=== PATIENT | female | born 1935 | race African-American/Black ===

== ENCOUNTER 2018-04-12 09:53 | Emergency (ER) | payer MEDICARE ==
[2018-04-12 10:00] VITALS: BP 156/95
[2018-04-12] MEDS ORDERED: OXYCODONE-ACETAMINOPHEN 5-325 MG TABLET PO ONE (10:10)
--- NOTE | 2018-04-12 10:12 | ER Document Report ---
ED Medical Screen (RME) - General Chief Complaint: Hip Pain Stated Complaint: HIP PAIN Time Seen by Provider: 04/12/18 10:09 Notes: 82 years old female presents today with left hip pain since yesterday, having difficulty in ambulating. No injury no fall. Woke up with it. Denies any pain running down the leg denies any numbness tingling sensation over the lower extremity. Sharp tenderness noted over the left sacroiliac joint region as well as Sharp tenderness noted over the left SI joint region ,left trochanteric region. TRAVEL OUTSIDE OF THE [place] IN LAST 30 DAYS: No - Related Data Allergies/Adverse Reactions: No Known Allergies Allergy (Unverified 07/19/12 18:19) Past Medical History - Past Medical History Cardiac Medical History: Reports: Hx Hypertension Endocrine Medical History: Reports: Hx Diabetes Mellitus Type 2 Renal/ Medical History: Denies: Hx Peritoneal Dialysis Musculoskeltal Medical History: Reports Hx Arthritis - Immunizations Hx Diphtheria, Pertussis, Tetanus Vaccination: Yes Physical Exam - Vital signs Vitals: Temp Pulse Resp BP Pulse Ox 97.5 F 78 16 156/95 H 95 04/12/18 09:59 04/12/18 09:59 04/12/18 09:59 04/12/18 09:59 04/12/18 09:59 Course - Vital Signs Vital signs: Temp Pulse Resp BP Pulse Ox 97.5 F 78 16 156/95 H 95 04/12/18 09:59 04/12/18 09:59 04/12/18 09:59 04/12/18 09:59 04/12/18 09:59 Doctor's Discharge - Discharge Referrals: BORA LUCIO MD [Primary Care Provider] - Follow up as needed
[2018-04-12] MEDS ORDERED: LIDOCAINE 5% (700 MG) TRANSDERMAL ADH..PATCH TP ONE (11:16)
[2018-04-12] MEDS ORDERED: KETOROLAC TROMETHAMINE INJ/PF 30 MG/1 ML SDV IM ONE (11:16)
--- NOTE | 2018-04-12 11:16 | ER Document Report ---
HPI - HPI Pain Level: 5 Notes: Patient is an 82-year-old female with a history of hypertension and chronic left lower back pain who presents to the ED complaining of acute on chronic left lower back/upper buttock pain over the last couple days. The pain will occasionally radiate down her left lateral leg. Movements make her pain worse as well as lying on that side. Patient states that she has had pain in this area intermittently over the last couple years. Patient states that she was pushing on a chair yesterday which flared up her pain. She has been trying some Tylenol with minimal relief. She denies any drug allergies. She is eating and drinking without any difficulties. She is urinating normally and having normal bowel movements. Patient states that she is still able to ambulate with aid of her single-point cane. Denies any headache, fever, URI, sore throat, chest pain, palpitations, syncope, cough, shortness of breath, wheeze, dyspnea, abdominal pain, nausea/vomiting/diarrhea, urinary retention, dysuria, hematuria, loss of control of bowel or bladder, numbness/tingling, saddle anesthesia, muscle paralysis/weakness, or rash. - ROS Systems Reviewed and Negative: Yes All other systems reviewed and negative - REPRODUCTIVE Reproductive: DENIES: : - DERM Skin Color: Normal Past Medical History - Social History Smoking Status: Never Smoker Family History: Reviewed & Not Pertinent Patient has suicidal ideation: No Patient has homicidal ideation: No - Past Medical History Cardiac Medical History: Reports: Hx Hypertension Endocrine Medical History: Reports: Hx Diabetes Mellitus Type 2 Renal/ Medical History: Denies: Hx Peritoneal Dialysis Musculoskeletal Medical History: Reports Hx Arthritis - Immunizations Hx Diphtheria, Pertussis, Tetanus Vaccination: Yes Vertical Provider Document - CONSTITUTIONAL Agree With Documented VS: Yes Notes: PHYSICAL EXAMINATION: GENERAL: Well-appearing, well-nourished and in no acute distress. LUNGS: Breath sounds clear to auscultation bilaterally and equal. No wheezes rales or rhonchi. HEART: Regular rate and rhythm without murmurs, rubs, gallops. ABDOMEN: Soft, nontender, nondistended abdomen. No guarding, no rebound. No masses appreciated. Normal bowel sounds present. No CVA tenderness bilaterally. No pulsatile mass Musculoskeletal: LE's b/l: FROM to passive/active. Strength 5+/5. No deficits noted. No bony tenderness of extremities. Back: FROM to passive/active. Strength 5+/5. No vertebral point tenderness, stepoffs, or deformities. No other erythema, swelling, or ecchymosis. SLR negative b/l. + mild tenderness to the L-paraspinal mm on the left side. Mild spasming. + left SI jt tenderness. No foot drop. + mild tenderness left troch bursa. Extremities: No cyanosis, clubbing, or edema b/l. Peripheral pulses 2+. Capillary refill less than 2 seconds. NEUROLOGICAL: Normal speech, ataxic gait. Normal sensory, motor exams. Reflexes 2+ b/l. PSYCH: Normal mood, normal affect. SKIN: Warm, Dry, normal turgor, no rashes or lesions noted. - INFECTION CONTROL TRAVEL OUTSIDE OF THE [place] IN LAST 30 DAYS: No Course - Re-evaluation Re-evalutation: 04/12/18 11:12 Patient is an afebrile, well-hydrated, 82-year-old female who presents to the ED with acute on chronic low back pain and sacroiliitis. Vitals are acceptable. PE is otherwise unremarkable for any focal neurological deficits. X-ray was unremarkable for any acute pathology. Patient was given Toradol & Lidoderm patch. She has no significant tachycardia, tachypnea, or hypoxia. She is nontoxic-appearing and is tolerating p.o. without difficulties. There are no signs of infection. No other red flag symptoms noted. No other labs or imaging warranted at this time based on H&P. Low suspicion for any meningitis, fracture, expanding/ruptured AAA, cauda equina syndrome, epidural mass lesion/ abscess, herniated disc causing severe spinal stenosis, or other systemic infection at this time. Patient is aware that this condition can change from initial presentation and that she needs monitor symptoms closely for any acute changes. I will send her home with a prescription for lidoderm patch and a short Rx of celebrex with GI bleed risk reviewed. Conservative measures otherwise for symptoms. Recheck with your PCM in 3-5 days. Consider consult with orthopedic/physical therapy. Return to the ED with any worsening/ concerning symptoms otherwise as reviewed discharge. Patient is in agreement. - Vital Signs Vital signs: Temp Pulse Resp BP Pulse Ox 97.5 F 78 16 156/95 H 95 04/12/18 09:59 04/12/18 09:59 04/12/18 09:59 04/12/18 09:59 04/12/18 09:59 Discharge - Discharge Clinical Impression: Sacroiliitis Left low back pain Qualifiers: Chronicity: acute Sciatica presence: without sciatica Qualified Code(s): M54.5 - Low back pain Condition: Stable Disposition: HOME, SELF-CARE Instructions: Stretching Exercises for the Back ([facility]), Low Back Pain ([facility]), Muscle Relaxers ([facility]) Additional Instructions: Rest, Ice Tylenol/ibuprofen as needed Light stretches daily Strength exercises as able Moist heat and massage may help F/u with your PCP in 3-5 days for a recheck Consider consult(s) with Orthopedics/physical therapy for ongoing/worsening symptoms Return to the ED with any worsening symptoms and/or development of fever, headache, chest pain, palpitations, syncope, shortness of breath, trouble breathing, abdominal pain, n/v/d, muscle weakness/paralysis, numbness/tingling, swelling, redness, or other worsening symptoms that are concerning to you. Prescriptions: Celecoxib [Celebrex 100 mg Capsule] 100 mg PO BID #14 capsule Lidocaine [Lidoderm] 1 each TP DAILY #30 adh..patch Forms: Elevated Blood Pressure Referrals: BORA LUCIO MD [Primary Care Provider] - Follow up in 3-5 days [facility] [Provider Group] - Follow up as needed
--- NOTE | 2018-04-12 11:37 | RADIOLOGY REPORT (SQ) ---
EXAM DESCRIPTION: HIP LEFT AP/LATERAL COMPLETED DATE/TIME: 04/12/2018 11:00 am REASON FOR STUDY: Low back/left hip pain unable to ambulate COMPARISON: None. NUMBER OF VIEWS: Two views. TECHNIQUE: AP pelvis and additional frog-leg view of the left hip. LIMITATIONS: None. FINDINGS: MINERALIZATION: Osteopenia. LEFT HIP: No fracture or dislocation. No worrisome bone lesions. RIGHT HIP: No fracture or dislocation. No worrisome bone lesions. PUBIS AND ISCHIUM: Suspect fractures of the inferior pubic rami bilaterally, and possibly superior pu bic ramus on the left. PELVIS: No fracture. SACRUM: No fracture or dislocation. No worrisome bone lesions. LOWER LUMBAR SPINE: Degenerative changes. SOFT TISSUES: No findings. OTHER: No other significant finding. IMPRESSION: Possible pubic fractures. COMMENT: Recommend CT of the pelvis. TECHNICAL DOCUMENTATION: JOB ID: [id number] [employer]- All Rights Reserved Reading location - IP/workstation name: [email or web address]
--- NOTE | 2018-04-12 11:42 | RADIOLOGY REPORT (SQ) ---
EXAM DESCRIPTION: L SPINE WHOLE COMPLETED DATE/TIME: 04/12/2018 11:00 am REASON FOR STUDY: Low back/left hip pain unable to ambulate COMPARISON: None. NUMBER OF VIEWS: Five views including obliques. TECHNIQUE: AP, lateral, oblique, and sacral radiographic images acquired of the lumbar spine. LIMITATIONS: None. FINDINGS: MINERALIZATION: Osteopenia. SEGMENTATION: Normal. No transitional anatomy. ALIGNMENT: Normal. VERTEBRAE: Maintained height. No fracture or worrisome bone lesion. DISCS: Preserved height. No significant osteophytes or end plate irregularity. POSTERIOR ELEMENTS: Pedicles and facets are intact. No pars defect or posterior arch defects. HARDWARE: None in the spine. PARASPINAL SOFT TISSUES: Normal. PELVIS: Intact as visualized. No fractures or worrisome bone lesions. SI joints intact. OTHER: No other significant finding. IMPRESSION: No significant or acute findings. TECHNICAL DOCUMENTATION: JOB ID: [id number] [employer]- All Rights Reserved Reading location - IP/workstation name: [email or web address]
== END 2018-04-12 11:38 | disposition home or self-care (01) ==
LOC: ER 09:53
DX: M46.1 Sacroiliitis, not elsewhere classified (principal); M54.5 Low back pain; G89.29 Other chronic pain; R25.2 Cramp and spasm; I10 Essential (primary) hypertension; E11.9 Type 2 diabetes mellitus without complications
CPT/HCPCS: 99283; 96372; 73502; 72110; J1885; A9270

== ENCOUNTER 2018-11-04 15:34 | Observation (INO) | payer MEDICARE ==
[2018-11-04] MEDS ORDERED: ONDANSETRON HCL INJ/PF 4 MG/2 ML SDV IV ONE (15:37)
[2018-11-04] MEDS ORDERED: NITROGLYCERIN 2% OINTMENT 1 GM PACKET TP ONE (15:57)
[2018-11-04] MEDS ORDERED: PANTOPRAZOLE SODIUM 40 MG VIAL IV ONE (15:58)
--- NOTE | 2018-11-04 15:59 | ER Document Report ---
ED General - General Chief Complaint: General Weakness Stated Complaint: GENERAL WEAKNESS Time Seen by Provider: 11/04/18 15:56 Mode of Arrival: Stretcher Information source: Patient, Relative, Emergency Med Personnel Notes: This is an 83-year-old female with a history of hypertension and hypothyroidism who presents to the emergency room with worsening weakness, nausea over the past week. Patient is actively vomiting in the ER. She last ate earlier today. Her vomit is mostly food and towards the end there was some bright red blood: (small amount) TRAVEL OUTSIDE OF THE [place] IN LAST 30 DAYS: No - HPI Onset: Last week Onset/Duration: Gradual Quality of pain: No pain Severity: None Pain Level: Denies Associated symptoms: Nausea, Vomiting, Weakness. denies: Chest pain, Fever, Shortness of breath Exacerbated by: Denies Relieved by: Denies Similar symptoms previously: No Recently seen / treated by doctor: No - Related Data Allergies/Adverse Reactions: No Known Allergies Allergy (Unverified 07/19/12 18:19) Past Medical History - General Information source: Patient, Relative - Social History Smoking Status: Never Smoker Cigarette use (# per day): No Chew tobacco use (# tins/day): No Frequency of alcohol use: None Drug Abuse: None Lives with: Spouse/Significant other Family History: Reviewed & Not Pertinent Patient has suicidal ideation: No Patient has homicidal ideation: No - Past Medical History Cardiac Medical History: Reports: Hx Hypertension Pulmonary Medical History: Reports: None EENT Medical History: Reports: None Neurological Medical History: Reports: None Endocrine Medical History: Reports: Hx Diabetes Mellitus Type 2 Renal/ Medical History: Denies: Hx Peritoneal Dialysis Malignancy Medical History: Reports: None GI Medical History: Reports: None Musculoskeletal Medical History: Reports Hx Arthritis Psychiatric Medical History: Reports: None Surgical Hx: Negative - Immunizations Hx Diphtheria, Pertussis, Tetanus Vaccination: Yes Review of Systems - Review of Systems Constitutional: denies: Chills, Fever EENT: No symptoms reported Cardiovascular: denies: Chest pain, Palpitations, Heart racing Respiratory: denies: Cough, Short of breath, Wheezing Gastrointestinal: Nausea, Vomiting. denies: Abdominal pain Genitourinary: No symptoms reported Female Genitourinary: No symptoms reported Musculoskeletal: No symptoms reported Skin: No symptoms reported Hematologic/Lymphatic: No symptoms reported Neurological/Psychological: Weakness Physical Exam - Vital signs Vitals: Resp BP Pulse Ox 14 197/99 H 97 11/04/18 15:42 11/04/18 15:42 11/04/18 15:42 Notes: Physical exam: GENERAL: This is an 83-year-old female, actively vomiting during my evaluation. HEAD: Atraumatic, normocephalic. EYES: Pupils equal round and reactive to light, extraocular movements intact, sclera anicteric, conjunctiva are normal. ENT: TMs normal, nares patent, oropharynx clear without exudates. Dry mucous membranes. NECK: Normal range of motion, supple without obvious mass or JVD. LUNGS: Breath sounds clear to auscultation bilaterally and equal. No wheezes rales or rhonchi. HEART: Regular rate and rhythm without murmurs, rubs or gallops. ABDOMEN: Soft, normoactive bowel sounds. No tenderness to palpation. No guarding, no rebound. No masses appreciated. Rectal exam: Brown stool, heme-negative EXTREMITIES: Normal range of motion, no pitting or edema. No clubbing or cyanosis. NEUROLOGICAL: Cranial nerves II through XII grossly intact. Normal speech, moving all extremities. PSYCH: Normal mood, normal affect. SKIN: Warm, Dry, normal turgor, no rashes or lesions noted. Course - Re-evaluation Re-evalutation: 11/04/18 22:23 Note: Patient did vomit several times while I was in her room. She did have a little bright red blood in the vomitus the last time she retched. Her abdomen was soft and benign at the time. Her stool was brown and heme-negative. She was treated with anti-emetics, IV fluids. CT of the head and the abdomen showed no acute process. She did not have any further vomiting and has no abdominal pain on repeat exam. She is weak and has a low temperature so we will bring her room for further evaluation. She has no obvious source of infection at this point. She was given steroids for possible adrenal insufficiency. - Vital Signs Vital signs: Temp Pulse Resp BP Pulse Ox 96.1 F L 16 119/89 H 95 11/04/18 16:21 11/04/18 18:01 11/04/18 21:01 11/04/18 21:01 - Laboratory Result Diagrams: 11/04/18 15:31 11/04/18 15:31 Laboratory results interpreted by me: 03/02/19 03/02/19 03/02/19 15:31 15:31 15:31 WBC 11.0 H Glucose 155 H Hemoglobin A1c % Creatine Kinase 216 H Total Protein 9.0 H Free T3 pg/mL 11/04/18 11/04/18 15:31 17:22 WBC Glucose Hemoglobin A1c % 6.1 H Creatine Kinase Total Protein Free T3 pg/mL 2.65 L - Diagnostic Test Radiology reviewed: Image reviewed, Reports reviewed - CT of the head shows no acute process. CT of the abdomen shows no acute process. Chest x-ray is clear Critical Care Note - Critical Care Note Total time excluding time spent on procedures (mins): 60 Discharge - Discharge Clinical Impression: Nausea with vomiting, Near syncope Condition: Stable Disposition: ADMITTED INPATIENT Admitting Provider: Hospitalist - Dr. Chow Unit Admitted: Telemetry
[2018-11-04 16:07] LABS: ABSOLUTE BASOPHILS # (AUTO) 0.1 10^3/uL (0.0-0.2); ABSOLUTE EOSINOPHILS # (AUTO) 0.1 10^3/uL (0.0-0.6); ABSOLUTE LYMPHOCYTES (AUTO) 4.2 10^3/uL (0.5-4.7); ABSOLUTE MONOCYTES (AUTO) 1.2 10^3/uL (0.1-1.4); ABSOLUTE NEUT (AUTO) 5.5 10^3/uL (1.7-8.2); BASOPHILS % (AUTO) 0.5 % (0-2); EOSINOPHILS % (AUTO) 0.8 % (0-6); HEMATOCRIT 41.8 % (36.0-47.0); HEMOGLOBIN 14.1 g/dL (12.0-15.5); MEAN CORPUSCULAR HEMOGLOBIN 31.2 pg (27.0-33.4); MEAN CORPUSCULAR HGB CONC 33.8 g/dL (32.0-36.0); MEAN CORPUSCULAR VOLUME 92 fl (80-97); MONOCYTES % (AUTO) 10.9 % (3-13); PLATELET COUNT 261 10^3/uL (150-450); RED BLOOD COUNT 4.53 10^6/uL (3.72-5.28); RED CELL DISTRIBUTION WIDTH 13.8 % (11.5-14.0); SEGMENTED NEUTROPHILS % (AUTO) 49.8 % (42-78); TOTAL CELLS COUNTED % (AUTO) 100 %
[2018-11-04 16:19] LABS: ALANINE AMINOTRANSFERASE 19 U/L (9-52); ALBUMIN 4.6 g/dL (3.5-5.0); ALKALINE PHOSPHATASE 115 U/L (38-126); ANION GAP 10 (5-19); ASPARTATE AMINO TRANSFERASE 31 U/L (14-36); BILIRUBIN,DIRECT 0.3 mg/dL (0.0-0.4); BILIRUBIN,TOTAL 0.6 mg/dL (0.2-1.3); BLOOD UREA NITROGEN 19 mg/dL (7-20); CALCIUM 10.1 mg/dL (8.4-10.2); CARBON DIOXIDE 26 mmol/L (22-30); CHLORIDE 105 mmol/L (98-107); GLUCOSE 155 mg/dL (75-110); POTASSIUM 3.8 mmol/L (3.6-5.0); SODIUM 141.3 mmol/L (137-145)
[2018-11-04 16:33] LABS: TROPONIN I < 0.012 ng/mL
--- NOTE | 2018-11-04 16:33 | EKG REPORT ---
SEVERITY:- ABNORMAL ECG - SINUS RHYTHM LEFT VENTRICULAR HYPERTROPHY BORDERLINE PROLONGED QT INTERVAL : Confirmed by: Demar Palma 04-Nov-2018 16:32:23
--- NOTE | 2018-11-04 17:22 | RADIOLOGY REPORT (SQ) ---
EXAM DESCRIPTION: CHEST SINGLE VIEW COMPLETED DATE/TIME: 11/04/2018 5:14 pm REASON FOR STUDY: vomiting COMPARISON: 07/20/2012. EXAM PARAMETERS: NUMBER OF VIEWS: One view. TECHNIQUE: Single frontal radiographic view of the chest acquired. RADIATION DOSE: NA LIMITATIONS: None. FINDINGS: LUNGS AND PLEURA: No opacities, masses or pneumothorax. No pleural effusion. MEDIASTINUM AND HILAR STRUCTURES: No masses. Contour normal. HEART AND VASCULAR STRUCTURES: Heart upper limits of normal in size. Normal vasculature. BONES: No acute findings. HARDWARE: None in the chest. OTHER: No other significant finding. IMPRESSION: NO ACUTE RADIOGRAPHIC FINDING IN THE CHEST. TECHNICAL DOCUMENTATION: JOB ID: [id number] [employer]- All Rights Reserved Reading location - IP/workstation name: [email or web address]
[2018-11-04 17:33] LABS: APPEARANCE,URINE CLEAR; BILIRUBIN,URINE NEGATIVE (NEGATIVE); COLOR,URINE STRAW; GLUCOSE, URINE NEGATIVE (NEGATIVE); KETONES,URINE NEGATIVE (NEGATIVE); LEUKOCYTE ESTERASE,URINE NEGATIVE (NEGATIVE); NITRITE,URINE NEGATIVE (NEGATIVE); PROTEIN,URINE NEGATIVE (NEGATIVE); URINE SPECIFIC GRAVITY 1.016; UROBILINOGEN,URINE NEGATIVE mg/dL (<2.0)
--- NOTE | 2018-11-04 17:36 | RADIOLOGY REPORT (SQ) ---
EXAM DESCRIPTION: CT HEAD WITHOUT COMPLETED DATE/TIME: 11/04/2018 5:21 pm REASON FOR STUDY: [place] COMPARISON: None. TECHNIQUE: Axial images acquired through the brain without intravenous contrast. Images reviewed wi th bone, brain and subdural windows. Images stored on PACS. All CT scanners at this facility use dose modulation, iterative reconstruction, and/or weight based d osing when appropriate to reduce radiation dose to as low as reasonably achievable (ALARA). [facility]: Dose Right [facility]: CareDose [facility]: Dose Right [facility]: Teradose 4D [facility]: [place] Digital RADIATION DOSE: CT Rad equipment meets quality standard of care and radiation dose reduction techniq ues were employed. CTDIvol: 53.2 mGy. DLP: 1097 mGy-cm. mGy. LIMITATIONS: None. FINDINGS: VENTRICLES: Normal size and contour. CEREBRUM: No masses. No hemorrhage. No midline shift. No evidence for acute infarction. Normal gra y/white matter differentiation. No areas of low density in the white matter. CEREBELLUM: No masses. No hemorrhage. No alteration of density. No evidence for acute infarction. EXTRAAXIAL SPACES: No fluid collections. No masses. ORBITS AND GLOBE: No intra- or extraconal masses. Normal contour of globe without masses. CALVARIUM: No fracture. PARANASAL SINUSES: No fluid mild left maxillary mucosal thickening. SOFT TISSUES: No mass or hematoma. OTHER: No other significant finding. IMPRESSION: No acute intracranial findings. EVIDENCE OF ACUTE STROKE: NO. COMMENT: Quality ID # 436: Final reports with documentation of one or more dose reduction techniques (e.g., Automated exposure control, adjustment of the mA and/or kV according to patient size, use of iterative reconstruction technique) TECHNICAL DOCUMENTATION: JOB ID: [id number] [place]-72 2010 [employer]- All Rights Reserved Reading location - IP/workstation name: [email or web address]
[2018-11-04] MEDS ORDERED: METOCLOPRAMIDE HCL INJ/PF 10 MG/2 ML SDV IV ONE (17:50)
[2018-11-04 18:38] LABS: FREE T3 2.65 pg/mL (2.77-5.27); FREE T4 (FREE THYROXINE) 1.29 ng/dL (0.78-2.19)
[2018-11-04 18:52] LABS: THYROID STIMULATING HORMONE 1.39 uIU/mL (0.47-4.68)
--- NOTE | 2018-11-04 19:27 | RADIOLOGY REPORT (SQ) ---
EXAM DESCRIPTION: CT ABD/PELVIS WITH IV ONLY COMPLETED DATE/TIME: 11/04/2018 7:13 pm REASON FOR STUDY: vomiting COMPARISON: None. TECHNIQUE: CT scan of the abdomen and pelvis performed using helical scanning technique with dynamic intravenous contrast injection. No oral contrast. Images reviewed with lung, soft tissue, and bone w indows. Reconstructed coronal and sagittal MPR images reviewed. Delayed images for evaluation of the urinary system also acquired. All images stored on PACS. All CT scanners at this facility use dose modulation, iterative reconstruction, and/or weight based d osing when appropriate to reduce radiation dose to as low as reasonably achievable (ALARA). [facility]: Dose Right [facility]: CareDose [facility]: Dose Right [facility]: Teradose 4D [facility]: AQUA PURE CONTRAST TYPE AND DOSE: contrast/concentration: Isovue 350.00 mg/ml; Total Contrast Delivered: 91.0 ml; Total Saline Delivered: 72.0 ml RENAL FUNCTION: GFR > 60. RADIATION DOSE: CT Rad equipment meets quality standard of care and radiation dose reduction techniq ues were employed. CTDIvol: 18.2 - 20.4 mGy. DLP: 2136 mGy-cm.. LIMITATIONS: None. FINDINGS: LOWER CHEST: No significant findings. LIVER: Normal size. No enhancing masses. No dilated ducts. SPLEEN: Normal size. No focal lesions. PANCREAS: No masses identified. No significant calcifications. No adjacent inflammation or peripancre atic fluid collections. Pancreatic duct not dilated. GALLBLADDER: No calcified stones. No inflammatory changes to suggest cholecystitis. ADRENAL GLANDS: No significant masses. RIGHT KIDNEY AND URETER: No cysts identified. No solid masses identified. No calcified stones. No hyd ronephrosis or hydroureter. LEFT KIDNEY AND URETER: 5.2 cm lower pole cyst. No solid masses identified. No calcified stones. No h ydronephrosis or hydroureter. AORTA AND VESSELS: No aneurysm. No dissection. Renal arteries, SMA, celiac without significant stenos is. RETROPERITONEUM: No bulky retroperitoneal adenopathy. BOWEL AND PERITONEAL CAVITY: No obstruction or inflammatory changes. No free fluid. APPENDIX: Normal. PELVIS: May catheter in the bladder. No free fluid. ABDOMINAL WALL: No masses. No hernias. BONES: No acute findings. OTHER: No other significant finding. IMPRESSION: NO ACUTE FINDINGS IN THE ABDOMEN OR PELVIS ON CT SCAN WITH IV CONTRAST. TECHNICAL DOCUMENTATION: JOB ID: [id number] [place]-72 Quality ID # [id number]: Final reports with documentation of one or more dose reduction techniques (e.g., Au tomated exposure control, adjustment of the mA and/or kV according to patient size, use of iterative reconstruction technique) 2010 [employer]- All Rights Reserved Reading location - IP/workstation name: [email or web address]
[2018-11-04] MEDS ORDERED: HYDROCORTISONE SOD SUCCINATE INJ/PF 100 MG/2 ML SDV IV ONE (19:38)
[2018-11-04] MEDS ORDERED: NA PHOS,M-B/NA PHOS,DI-BA (ADULT) 133 ML ENEMA PR ONE (19:45)
[2018-11-04] MEDS ORDERED: MAGNESIUM HYDROXIDE SUSP 30 ML UDCUP PO PRN (19:48)
[2018-11-04] MEDS ORDERED: IPRATROPIUM/ALBUTEROL 0.5-2.5 MG/3 ML AMPUL NEB PRN (19:48)
[2018-11-04] MEDS ORDERED: ACETAMINOPHEN 325 MG TABLET PO PRN (19:48)
[2018-11-04] MEDS ORDERED: DEXTROSE 40% GEL 15 GM TUBE PO PRN ×2 (19:48)
[2018-11-04] MEDS ORDERED: GLUCAGON,HUMAN RECOMB 1 MG INJ IM PRN (19:48)
[2018-11-04] MEDS ORDERED: MAG HYDROX/AL HYDROX/SIMETH SUSP 30 ML UDCUP PO PRN (19:48)
[2018-11-04] MEDS ORDERED: DEXTROSE 50%-WATER 25 GM/50 ML DISP.SYRIN IV PRN ×2 (19:48)
[2018-11-04] MEDS ORDERED: PANTOPRAZOLE SODIUM 80 MG in NORMAL SALINE 100 ML IV ONE (19:54)
[2018-11-04 20:21] LABS: URINE AMPHETAMINES SCREEN NEGATIVE; URINE BARBITURATES SCREEN NEGATIVE; URINE BENZODIAZEPINES SCREEN NEGATIVE; URINE COCAINE SCREEN NEGATIVE; URINE MARIJUANA (THC) SCREEN NEGATIVE; URINE METHADONE SCREEN NEGATIVE; URINE PHENCYCLIDINE SCREEN NEGATIVE
[2018-11-04] MEDS ORDERED: PANTOPRAZOLE SODIUM 40 MG VIAL IV PRN (20:27)
[2018-11-04] MEDS: NORMAL SALINE 100 ML with PANTOPRAZOLE SODIUM 80 MG IV PRN ×2 (21:15)
[2018-11-04] MEDS: HEPARIN SOD (PORCINE) 5,000 UNIT/ML 1 ML SYRINGE SUBCUT SCH (21:16)
[2018-11-04] MEDS ORDERED: LACTULOSE SYRUP 20 GM/30 ML UDCUP PO ONE (22:02)
[2018-11-04 22:04] LABS: CREATINE KINASE MB 1.71 ng/mL (<4.55)
[2018-11-04 22:07] LABS: TROPONIN I < 0.012 ng/mL
--- NOTE | 2018-11-05 02:14 | PDOC H&P ---
History of Present Illness Admission Date/PCP: 11/04/18 19:52 BORA LUCIO MD Patient complains of: Nausea and vomiting History of Present Illness: MAHNAZ COKER is a 83 year old female with a past medical history of hypothyroidism, diabetes and hypertension who presents as a poor historian with complaints of vague nausea with vomiting of gastric content over the last 24 hours. In the emergency room she is found to have mild hypothermia she denies fever chills chest pain, palpitations and episode of vomiting x1 which is Gastroccult positive. CBC and chemistry unremarkable, CT imaging reveals a 5.2 cm left renal cyst and constipation. She receives a presumptive diagnosis of gastritis and possible adrenal insufficiency then referred to the hospitalist for observation. Patient denies previous episode or new medications. Past Medical History Cardiac Medical History: Reports: Hypertension Pulmonary Medical History: Reports: None EENT Medical History: Reports: None Neurological Medical History: Reports: None Endocrine Medical History: Reports: Diabetes Mellitus Type 2 Malignancy Medical History: Reports: None GI Medical History: Reports: None Musculoskeltal Medical History: Reports: Arthritis Psychiatric Medical History: Reports: None Social History Information Source: Patient, Emergency Med Personnel Lives with: Spouse/Significant other Smoking Status: Never Smoker Drugs: None - Advance Directive Resuscitation Status: Full Code Family History Family History: Hypertension Parental Family History Reviewed: Yes Children Family History Reviewed: Yes Sibling(s) Family History Reviewed.: Yes Medication/Allergy Home Medications: Telmisartan/Hydrochlorothiazid [Micardis HCT 80-25 mg Tablet] 1 each PO DAILY 07/19/12 Metformin HCl [Glucophage 500 Mg Tablet] 500 mg PO ASDIR PRN 07/20/12 Hydrocodone Bit/Acetaminophen [Vicodin 5-500 mg Tablet] 1 - 2 tab PO ASDIR PRN #15 tablet 07/23/12 Cyclobenzaprine HCl [Flexeril 5 mg Tablet] 5 mg PO TID #15 tablet 04/16/16 Celecoxib [Celebrex 100 mg Capsule] 100 mg PO BID #14 capsule 04/12/18 Lidocaine [Lidoderm] 1 each TP DAILY #30 adh..patch 04/12/18 Allergies/Adverse Reactions: No Known Allergies Allergy (Unverified 07/19/12 18:19) Review of Systems Constitutional: ABSENT: chills, fever(s), headache(s), weight gain, weight loss Eyes: ABSENT: visual disturbances Ears: ABSENT: hearing changes Cardiovascular: ABSENT: chest pain, dyspnea on exertion, edema, orthropnea, palpitations Respiratory: ABSENT: cough, hemoptysis Gastrointestinal: ABSENT: abdominal pain, constipation, diarrhea, hematemesis, hematochezia, nausea, vomiting Genitourinary: ABSENT: dysuria, hematuria Musculoskeletal: ABSENT: joint swelling Integumentary: ABSENT: rash, wounds Neurological: ABSENT: abnormal gait, abnormal speech, confusion, dizziness, focal weakness, syncope Psychiatric: ABSENT: anxiety, depression, homidical ideation, suicidal ideation Endocrine: ABSENT: cold intolerance, heat intolerance, polydipsia, polyuria Hematologic/Lymphatic: ABSENT: easy bleeding, easy bruising Physical Exam Vital Signs: Temp Pulse Resp BP Pulse Ox 97.6 F 78 17 158/75 H 95 11/04/18 23:56 11/04/18 23:56 11/04/18 23:56 11/04/18 23:56 11/04/18 23:56 Intake & Output 11/03/18 11/04/18 11/05/18 11:59 11:59 11:59 Intake Total 650 Output Total 800 Balance -150 Weight 104.4 kg General appearance: PRESENT: no acute distress, cooperative, obese, well-de veloped, well-nourished Head exam: PRESENT: atraumatic, normocephalic Eye exam: PRESENT: conjunctiva pink, EOMI, PERRLA. ABSENT: scleral icterus Ear exam: PRESENT: normal external ear exam Mouth exam: PRESENT: moist, tongue midline Neck exam: ABSENT: carotid bruit, JVD, lymphadenopathy, thyromegaly Respiratory exam: PRESENT: clear to auscultation gurvinder. ABSENT: rales, rhonchi, wheezes Cardiovascular exam: PRESENT: RRR. ABSENT: diastolic murmur, rubs, systolic murmur Pulses: PRESENT: normal dorsalis pedis pul Vascular exam: PRESENT: normal capillary refill GI/Abdominal exam: PRESENT: normal bowel sounds, soft. ABSENT: distended, guarding, mass, organolmegaly, rebound, tenderness Rectal exam: PRESENT: deferred Extremities exam: PRESENT: full ROM. ABSENT: calf tenderness, clubbing, pedal e jennifer Neurological exam: PRESENT: alert, awake, oriented to person, oriented to place, oriented to time, oriented to situation, CN II-XII grossly intact. ABSENT: motor sensory deficit Psychiatric exam: PRESENT: appropriate affect, normal mood. ABSENT: homicidal ideation, suicidal ideation Skin exam: PRESENT: dry, intact, warm. ABSENT: cyanosis, rash Results Laboratory Results: 11/04/18 15:31 11/04/18 15:31 11/04/18 11/04/18 11/04/18 15:31 15:31 16:25 WBC 11.0 H RBC 4.53 Hgb 14.1 Hct 41.8 MCV 92 MCH 31.2 MCHC 33.8 RDW 13.8 Plt Count 261 Seg Neutrophils % 49.8 Lymphocytes % 38.0 Monocytes % 10.9 Eosinophils % 0.8 Basophils % 0.5 Absolute Neutrophils 5.5 Absolute Lymphocytes 4.2 Absolute Monocytes 1.2 Absolute Eosinophils 0.1 Absolute Basophils 0.1 Sodium 141.3 Potassium 3.8 Chloride 105 Carbon Dioxide 26 Anion Gap 10 BUN 19 Creatinine 0.85 Est GFR ( Amer) > 60 Est GFR (Non-Af Amer) > 60 Glucose 155 H Lactic Acid Calcium 10.1 Phosphorus Magnesium Total Bilirubin 0.6 AST 31 ALT 19 Alkaline Phosphatase 115 Total Protein 9.0 H Albumin 4.6 TSH Free T4 Free T3 pg/mL Urine Color STRAW Urine Appearance CLEAR Urine pH 6.0 Ur Specific [place] 1.016 Urine Protein NEGATIVE Urine Glucose (UA) NEGATIVE Urine Ketones NEGATIVE Urine Blood NEGATIVE Urine Nitrite NEGATIVE Ur Leukocyte Esterase NEGATIVE Urine WBC (Auto) 0 Urine RBC (Auto) 0 11/04/18 11/04/18 11/04/18 17:22 17:22 17:22 WBC RBC Hgb Hct MCV MCH MCHC RDW Plt Count Seg Neutrophils % Lymphocytes % Monocytes % Eosinophils % Basophils % Absolute Neutrophils Absolute Lymphocytes Absolute Monocytes Absolute Eosinophils Absolute Basophils Sodium Potassium Chloride Carbon Dioxide Anion Gap BUN Creatinine Est GFR ( Amer) Est GFR (Non-Af Amer) Glucose Lactic Acid 1.1 Calcium Phosphorus 4.0 Magnesium 2.1 Total Bilirubin AST ALT Alkaline Phosphatase Total Protein Albumin TSH 1.39 Free T4 1.29 Free T3 pg/mL 2.65 L Urine Color Urine Appearance Urine pH Ur Specific [place] Urine Protein Urine Glucose (UA) Urine Ketones Urine Blood Urine Nitrite Ur Leukocyte Esterase Urine WBC (Auto) Urine RBC (Auto) 11/04/18 11/04/18 11/04/18 15:31 15:31 21:20 Creatine Kinase 216 H 179 H CK-MB (CK-2) 1.20 Troponin I < 0.012 11/04/18 21:20 Creatine Kinase CK-MB (CK-2) 1.71 Troponin I < 0.012 Impressions: Chest X-Ray 11/04/18 15:57 IMPRESSION: NO ACUTE RADIOGRAPHIC FINDING IN THE CHEST. Head CT 11/04/18 15:57 IMPRESSION: No acute intracranial findings. EVIDENCE OF ACUTE STROKE: NO. Abdomen/Pelvis CT 11/04/18 17:51 IMPRESSION: NO ACUTE FINDINGS IN THE ABDOMEN OR PELVIS ON CT SCAN WITH IV CONTRAST. Assessment & Plan - Diagnosis (1) Gastritis Is this a current diagnosis for this admission?: Yes Plan: Unclear cause, Protonix and clear liquid diet. Follow-up CBC (2) Upper GI bleed Is this a current diagnosis for this admission?: Yes Plan: Secondary to #1, IV Protonix, follow-up CBC, consider GI consult (3) Constipation Is this a current diagnosis for this admission?: Yes Plan: Enema (4) Diabetes Is this a current diagnosis for this admission?: Yes Plan: Possible contributor to fatigue state on metformin with A1c of 6. Suggest discontinuing metformin (5) Adrenal insufficiency Is this a current diagnosis for this admission?: Yes Plan: Presenting with fatigue, hypothermia, nausea vomiting. History of diabetes, hypothyroidism, follow-up random cortisol, Solu-Cortef trial initiated. - Time Time Spent: 50 to 70 Minutes - Inpatient Certification Medical Necessity: Need Close Monitoring Due to Risk of Patient Decompensation
[2018-11-05 04:43] LABS: HEMATOCRIT 38.9 % (36.0-47.0); HEMOGLOBIN 13.4 g/dL (12.0-15.5); MEAN CORPUSCULAR HEMOGLOBIN 31.4 pg (27.0-33.4); MEAN CORPUSCULAR HGB CONC 34.5 g/dL (32.0-36.0); MEAN CORPUSCULAR VOLUME 91 fl (80-97); PLATELET COUNT 242 10^3/uL (150-450); RED BLOOD COUNT 4.28 10^6/uL (3.72-5.28); RED CELL DISTRIBUTION WIDTH 13.7 % (11.5-14.0); WHITE BLOOD COUNT 8.5 10^3/uL (4.0-10.5)
[2018-11-05 05:04] LABS: ANION GAP 9 (5-19)
[2018-11-05 05:14] LABS: BLOOD UREA NITROGEN 14 mg/dL (7-20); CALCIUM 10.1 mg/dL (8.4-10.2); CARBON DIOXIDE 26 mmol/L (22-30); CHLORIDE 108 mmol/L (98-107); GLUCOSE 147 mg/dL (75-110); POTASSIUM 4.5 mmol/L (3.6-5.0); SODIUM 142.5 mmol/L (137-145)
[2018-11-05 05:21] LABS: TROPONIN I < 0.012 ng/mL
[2018-11-05] MEDS: HEPARIN SOD (PORCINE) 5,000 UNIT/ML 1 ML SYRINGE SUBCUT SCH ×2 (05:30→13:13)
[2018-11-05] MEDS: INSULIN LISPRO 100 UNIT/ML 3 ML VIAL SUBCUT SCH ×3 (08:07→18:22)
[2018-11-05] MEDS: NORMAL SALINE 100 ML with PANTOPRAZOLE SODIUM 80 MG IV PRN ×2 (08:56)
[2018-11-05 10:26] LABS: CREATINE KINASE MB 1.21 ng/mL (<4.55)
[2018-11-05 10:29] LABS: TROPONIN I < 0.012 ng/mL
[2018-11-05] MEDS: LIDOCAINE 5% (700 MG) TRANSDERMAL ADH..PATCH TP SCH (11:52)
[2018-11-05] MEDS: AMLODIPINE BESYLATE 5 MG TABLET PO SCH (13:14)
--- NOTE | 2018-11-05 13:49 | PDOC PROGRESS REPORT ---
Subjective Progress Note for:: 11/05/18 Subjective:: The patient is an 83-year-old female with a past medical history of hypothyroidism, diabetes, and hypertension who was admitted 11/04/18 for gastritis and concern for upper GI bleed. The patient is seen on rounds with numerous family members present. She is found sitting up in bed comfortably on room air. Her only complaint at present is frontal pressure associated with nasal congestion, muffled hearing, rhinorrhea, and sore throat related to postnasal drip. Patient does confirm that she frequently has seasonal allergies. Otherwise, she is requesting to advance her diet; states that she is unhappy with the clear liquid diet. She denies fever, chills, chest pain, palpitations, dyspnea, orthopnea, abdominal pain, nausea, vomiting, diarrhea. She denies further episodes of hematemesis (previously noted to have 2 small, possible, blood clots in emesis) or melena. She has no other questions or concerns at this time. No concerns per family members. No concerns per nursing. Reason For Visit: DM, HYPOTHYROID, NAUSEA, ADRENAL INSUF? Physical Exam Vital Signs: Temp Pulse Resp BP Pulse Ox 97.1 F 72 18 152/86 H 97 11/05/18 11:27 11/05/18 11:27 11/05/18 11:27 11/05/18 11:27 11/05/18 11:27 Intake & Output 11/04/18 11/05/18 11/06/18 06:59 06:59 06:59 Intake Total 650 100 Output Total 1600 Balance -950 100 Weight 104.4 kg General appearance: PRESENT: no acute distress, cooperative, obese, well- developed, well-nourished Head exam: PRESENT: atraumatic, normocephalic Eye exam: PRESENT: conjunctiva pink, EOMI, PERRLA. ABSENT: scleral icterus Ear exam: PRESENT: other - Cerumen impaction bilaterally Mouth exam: PRESENT: moist, tongue midline Teeth exam: PRESENT: poor dentation Throat exam: PRESENT: post pharyngeal erythema Neck exam: ABSENT: carotid bruit, JVD, lymphadenopathy, thyromegaly Respiratory exam: PRESENT: clear to auscultation gurvinder, symmetrical, unlabored. ABSENT: rales, rhonchi, wheezes Cardiovascular exam: PRESENT: RRR. ABSENT: diastolic murmur, rubs, systolic murmur Pulses: PRESENT: normal dorsalis pedis pul Vascular exam: PRESENT: normal capillary refill GI/Abdominal exam: PRESENT: normal bowel sounds, soft. ABSENT: distended, guarding, mass, organolmegaly, rebound, tenderness Rectal exam: PRESENT: deferred Extremities exam: PRESENT: full ROM. ABSENT: calf tenderness, clubbing, pedal edema Neurological exam: PRESENT: alert, awake, oriented to person, oriented to place, oriented to time, oriented to situation, CN II-XII grossly intact. ABSENT: motor sensory deficit Psychiatric exam: PRESENT: appropriate affect, normal mood. ABSENT: homicidal ideation, suicidal ideation Skin exam: PRESENT: dry, intact, warm. ABSENT: cyanosis, rash Results Laboratory Results: 11/05/18 03:36 11/05/18 03:36 11/04/18 11/04/18 11/04/18 15:31 15:31 16:25 WBC 11.0 H RBC 4.53 Hgb 14.1 Hct 41.8 MCV 92 MCH 31.2 MCHC 33.8 RDW 13.8 Plt Count 261 Seg Neutrophils % 49.8 Lymphocytes % 38.0 Monocytes % 10.9 Eosinophils % 0.8 Basophils % 0.5 Absolute Neutrophils 5.5 Absolute Lymphocytes 4.2 Absolute Monocytes 1.2 Absolute Eosinophils 0.1 Absolute Basophils 0.1 Sodium 141.3 Potassium 3.8 Chloride 105 Carbon Dioxide 26 Anion Gap 10 BUN 19 Creatinine 0.85 Est GFR ( Amer) > 60 Est GFR (Non-Af Amer) > 60 Glucose 155 H Lactic Acid Calcium 10.1 Phosphorus Magnesium Total Bilirubin 0.6 AST 31 ALT 19 Alkaline Phosphatase 115 Total Protein 9.0 H Albumin 4.6 TSH Free T4 Free T3 pg/mL Urine Color STRAW Urine Appearance CLEAR Urine pH 6.0 Ur Specific [place] 1.016 Urine Protein NEGATIVE Urine Glucose (UA) NEGATIVE Urine Ketones NEGATIVE Urine Blood NEGATIVE Urine Nitrite NEGATIVE Ur Leukocyte Esterase NEGATIVE Urine WBC (Auto) 0 Urine RBC (Auto) 0 11/04/18 11/04/18 11/04/18 17:22 17:22 17:22 WBC RBC Hgb Hct MCV MCH MCHC RDW Plt Count Seg Neutrophils % Lymphocytes % Monocytes % Eosinophils % Basophils % Absolute Neutrophils Absolute Lymphocytes Absolute Monocytes Absolute Eosinophils Absolute Basophils Sodium Potassium Chloride Carbon Dioxide Anion Gap BUN Creatinine Est GFR ( Amer) Est GFR (Non-Af Amer) Glucose Lactic Acid 1.1 Calcium Phosphorus 4.0 Magnesium 2.1 Total Bilirubin AST ALT Alkaline Phosphatase Total Protein Albumin TSH 1.39 Free T4 1.29 Free T3 pg/mL 2.65 L Urine Color Urine Appearance Urine pH Ur Specific [place] Urine Protein Urine Glucose (UA) Urine Ketones Urine Blood Urine Nitrite Ur Leukocyte Esterase Urine WBC (Auto) Urine RBC (Auto) 11/05/18 11/05/18 03:36 03:36 WBC 8.5 RBC 4.28 Hgb 13.4 Hct 38.9 MCV 91 MCH 31.4 MCHC 34.5 RDW 13.7 Plt Count 242 Seg Neutrophils % Lymphocytes % Monocytes % Eosinophils % Basophils % Absolute Neutrophils Absolute Lymphocytes Absolute Monocytes Absolute Eosinophils Absolute Basophils Sodium 142.5 Potassium 4.5 Chloride 108 H Carbon Dioxide 26 Anion Gap 9 BUN 14 Creatinine 0.72 Est GFR ( Amer) > 60 Est GFR (Non-Af Amer) > 60 Glucose 147 H Lactic Acid Calcium 10.1 Phosphorus Magnesium Total Bilirubin AST ALT Alkaline Phosphatase Total Protein Albumin TSH Free T4 Free T3 pg/mL Urine Color Urine Appearance Urine pH Ur Specific [place] Urine Protein Urine Glucose (UA) Urine Ketones Urine Blood Urine Nitrite Ur Leukocyte Esterase Urine WBC (Auto) Urine RBC (Auto) 11/04/18 11/04/18 11/04/18 15:31 15:31 21:20 Creatine Kinase 216 H 179 H CK-MB (CK-2) 1.20 Troponin I < 0.012 11/04/18 11/05/18 11/05/18 21:20 03:36 03:36 Creatine Kinase 157 H CK-MB (CK-2) 1.71 1.40 Troponin I < 0.012 < 0.012 11/05/18 11/05/18 09:24 09:24 Creatine Kinase 125 CK-MB (CK-2) 1.21 Troponin I < 0.012 Impressions: Chest X-Ray 11/04/18 15:57 IMPRESSION: NO ACUTE RADIOGRAPHIC FINDING IN THE CHEST. Head CT 11/04/18 15:57 IMPRESSION: No acute intracranial findings. EVIDENCE OF ACUTE STROKE: NO. Abdomen/Pelvis CT 11/04/18 17:51 IMPRESSION: NO ACUTE FINDINGS IN THE ABDOMEN OR PELVIS ON CT SCAN WITH IV CONTRAST. Assessment & Plan - Diagnosis (1) Gastritis Qualifiers: Chronicity: unspecified Gastritis bleeding: with bleeding Is this a current diagnosis for this admission?: Yes Plan: Unclear etiology; viral gastritis vs constipation. Possible hypoglycemia event leading to nausea/vomiting. Ct ABD/Pelvis is negative for acute findings. Leukocytosis has resolved, patient maintaining normal body temp, no other abnormal vital signs. She reports that her nausea has resolved and is asking to advance her diet. The patient was admitted to the medical floor, provided IV fluids, placed on Protonix drip, and a clear liquid diet. Has symptoms rapidly resolved; will discontinue Protonix drip and continue once daily Protonix IV. Advance diet slowly as tolerated. Antiemetics as needed. Low suspicion for upper GI bleeding as the patient has had no further episodes of emesis, hematemesis, melena, abdominal discomfort and has a stable hemoglobin. May benefit from outpatient GI follow-up. (2) Constipation Is this a current diagnosis for this admission?: Yes Plan: Resolved following fleets enema. Continue daily Colace. Milk of magnesia as needed. (3) Diabetes Qualifiers: Diabetes mellitus type: type 2 Diabetes mellitus fci insulin use: without terminologist use Is this a current diagnosis for this admission?: Yes Plan: A1c 6.1%. For patient of her age, goal would be <8.5% Recommend discontinuing home dose metformin. Accu-Cheks before meals and at bedtime with Humalog for sliding scale coverage. Hypoglycemia protocol in place. (4) Adrenal insufficiency Is this a current diagnosis for this admission?: Yes Plan: Ruled out; Random cortisol 22.50. - Time Time Spent with patient: 15-24 minutes Medications reviewed and adjusted accordingly: Yes Anticipated discharge: Home Within: within 24 hours
[2018-11-05] MEDS ORDERED: DOCUSATE SODIUM 100 MG CAPSULE BTH_EAR ONE ×2 (15:00→20:00)
[2018-11-05] MEDS: FLUTICASONE NASAL SPRAY 50 MCG/SPRY 120 SPRAY/16 GM NASL SCH (15:14)
[2018-11-05] MEDS: CETIRIZINE 5 MG TABLET PO SCH (15:14)
[2018-11-06 05:36] LABS: HEMATOCRIT 39.6 % (36.0-47.0); HEMOGLOBIN 13.4 g/dL (12.0-15.5); MEAN CORPUSCULAR HGB CONC 33.8 g/dL (32.0-36.0); MEAN CORPUSCULAR VOLUME 92 fl (80-97); PLATELET COUNT 229 10^3/uL (150-450); RED BLOOD COUNT 4.31 10^6/uL (3.72-5.28); RED CELL DISTRIBUTION WIDTH 13.9 % (11.5-14.0); WHITE BLOOD COUNT 7.4 10^3/uL (4.0-10.5)
[2018-11-06 05:54] LABS: ANION GAP 9 (5-19); BLOOD UREA NITROGEN 19 mg/dL (7-20); CALCIUM 10.2 mg/dL (8.4-10.2); CARBON DIOXIDE 27 mmol/L (22-30); CHLORIDE 107 mmol/L (98-107); GLUCOSE 118 mg/dL (75-110); POTASSIUM 4.4 mmol/L (3.6-5.0); SODIUM 142.6 mmol/L (137-145)
[2018-11-06] MEDS ORDERED: LEVOTHYROXINE SODIUM 0.075 MG TABLET PO SCH (06:00)
[2018-11-06] MEDS: INSULIN LISPRO 100 UNIT/ML 3 ML VIAL SUBCUT SCH ×2 (09:39→12:24)
[2018-11-06] MEDS: LIDOCAINE 5% (700 MG) TRANSDERMAL ADH..PATCH TP SCH (09:39)
[2018-11-06] MEDS: AMLODIPINE BESYLATE 5 MG TABLET PO SCH (09:50)
[2018-11-06] MEDS: CETIRIZINE 5 MG TABLET PO SCH (09:50)
[2018-11-06] MEDS: FLUTICASONE NASAL SPRAY 50 MCG/SPRY 120 SPRAY/16 GM NASL SCH (09:50)
[2018-11-06] MEDS ORDERED: PANTOPRAZOLE SODIUM 40 MG VIAL IV SCH (10:00)
[2018-11-06] MEDS ORDERED: DOCUSATE SODIUM 100 MG CAPSULE PO SCH (10:00)
[2018-11-06 15:01] VITALS: BP 140/71
--- NOTE | 2018-11-09 09:53 | PDOC DISCHARGE SUMMARY ---
General - Admit/Disc Date/PCP Admission Date/Primary Care Provider: 11/04/18 19:52 BORA LUCIO MD Discharge Date: 11/06/18 - Discharge Diagnosis (1) Gastritis Is this a current diagnosis for this admission?: Yes Summary: Resolved; now tolerating a regular diet without nausea, vomiting. Unclear etiology; viral gastritis vs constipation. Possible hypoglycemia event leading to nausea/vomiting. Ct ABD/Pelvis is negative for acute findings. Leukocytosis has resolved, patient maintaining normal body temp, no other abnormal vital signs. The patient was admitted to the medical floor, provided IV fluids, placed on Protonix drip, and a clear liquid diet. Has symptoms rapidly resolved; the Protonix drip and once daily Protonix IV was continued. Advance diet slowly as tolerated; she was tolerating a regular diet at time of discharge. Antiemetics as needed. Low suspicion for upper GI bleeding as the patient has had no further episodes of emesis, hematemesis, melena, abdominal discomfort and has a stable hemoglobin. May benefit from outpatient GI follow-up. The patient was discharged home in the care of family members. At time of discharge she is in stable condition, maintaining oxygen saturations while on Sveta on room air, and tolerating a regular diet. She denies abdominal discomfort, nausea, vomiting, diarrhea, melena, and hematochezia. She is recommended to follow-up with her primary care provider within 1 week and to return to the emergency department as needed for concerning symptoms. (2) Constipation Is this a current diagnosis for this admission?: Yes Summary: Resolved following fleets enema. Recommend [id number] daily stool softener and MiraLAX as needed. Recommend increasing fluid intake. (3) Diabetes Is this a current diagnosis for this admission?: Yes Summary: A1c 6.1%. For patient of her age, goal would be <8.5% While admitted, the patient received Accu-Cheks before meals and at bedtime with Humalog for sliding scale coverage. At discharge,recommend discontinuing home dose metformin. Continue consistent carb diet. Continue to monitor glucose and present a log to primary care provider at follow-up appointment. (4) Adrenal insufficiency Is this a current diagnosis for this admission?: Yes Summary: Ruled out; Random cortisol 22.50. (5) Upper GI bleed Is this a current diagnosis for this admission?: Yes Summary: Considered; ruled out. Low suspicion for upper GI bleeding as the patient has had no further episodes of emesis, hematemesis, melena, abdominal discomfort and has a stable hemoglobin. May benefit from outpatient GI follow-up. - Additional Information Resuscitation Status: Full Code Discharge Diet: Diabetic Discharge Activity: Activity As Tolerated, Balance Activity w/Rest, Slowly Increase Activity Prescriptions: Carbamide Peroxide [Debrox] 15 ml OT DAILY #1 drops Cetirizine HCl [Zyrtec 5 mg Tablet] 5 mg PO DAILY #30 tablet Docusate Sodium [Colace 100 mg Capsule] 100 mg PO DAILY #30 capsule Fluticasone Propionate [Flonase Nasal [place] 50 Mcg/[place] 16 gm] 2 spray NASL DAILY #1 spray.pump Home Medications: Levothyroxine Sodium [Synthroid 0.075 mg Tablet] 0.075 mg PO DAILY 11/05/18 Acetaminophen [Tylenol 325 mg Tablet] 650 mg PO Q4HP PRN tablet 11/06/18 Amlodipine Besylate [Norvasc 5 mg Tablet] 5 mg PO DAILY tablet 11/06/18 Carbamide Peroxide [Debrox] 15 ml OT DAILY #1 drops 11/06/18 Cetirizine HCl [Zyrtec 5 mg Tablet] 5 mg PO DAILY #30 tablet 11/06/18 Docusate Sodium [Colace 100 mg Capsule] 100 mg PO DAILY #30 capsule 11/06/18 Fluticasone Propionate [Flonase Nasal [place] 50 Mcg/[place] 16 gm] 2 spray NASL DAILY #1 spray.pump 11/06/18 Lidocaine [Lidoderm 5% (700 mg) Transdermal Patch] 1 patch TP DAILY adh..patch 11/06/18 History of Present Illness History of Present Illness: Per H&P by Dr. Chow: MAHNAZ COKER is a 83 year old female with a past medical history of hypothyroidism, diabetes and hypertension who presents as a poor historian with complaints of vague nausea with vomiting of gastric content over the last 24 hours. In the emergency room she is found to have mild hypothermia she denies fever chills chest pain, palpitations and episode of vomiting x1 which is Gastroccult positive. CBC and chemistry unremarkable, CT imaging reveals a 5.2 cm left renal cyst and constipation. She receives a presumptive diagnosis of gastritis and possible adrenal insufficiency then referred to the hospitalist for observation. Patient denies previous episode or new medications. Physical Exam Vital Signs: Temp Pulse Resp BP Pulse Ox 97.9 F 73 18 140/71 H 97 11/06/18 14:59 11/06/18 14:59 11/06/18 14:59 11/06/18 14:59 11/06/18 14:59 General appearance: PRESENT: no acute distress, cooperative, well-developed, well-nourished - Overweight Head exam: PRESENT: atraumatic, normocephalic Eye exam: PRESENT: conjunctiva pink, EOMI, PERRLA. ABSENT: scleral icterus Ear exam: PRESENT: other - EAC impacted with cerumen bilaterally Mouth exam: PRESENT: moist, tongue midline Neck exam: ABSENT: carotid bruit, JVD, lymphadenopathy, thyromegaly Respiratory exam: PRESENT: clear to auscultation gurvinder, symmetrical, unlabored. ABSENT: rales, rhonchi, wheezes Cardiovascular exam: PRESENT: RRR. ABSENT: diastolic murmur, rubs, systolic murmur Pulses: PRESENT: normal dorsalis pedis pul Vascular exam: PRESENT: normal capillary refill GI/Abdominal exam: PRESENT: normal bowel sounds, soft. ABSENT: distended, guarding, mass, organolmegaly, rebound, tenderness Rectal exam: PRESENT: deferred Extremities exam: PRESENT: full ROM. ABSENT: calf tenderness, clubbing, pedal edema Neurological exam: PRESENT: alert, awake, oriented to person, oriented to place, oriented to time, oriented to situation, CN II-XII grossly intact. ABSENT: motor sensory deficit Psychiatric exam: PRESENT: appropriate affect, normal mood. ABSENT: homicidal ideation, suicidal ideation Skin exam: PRESENT: dry, intact, warm. ABSENT: cyanosis, rash Results Laboratory Results: 11/06/18 05:29 11/06/18 05:29 11/04/18 11/04/18 11/04/18 15:31 15:31 21:20 Creatine Kinase 216 H 179 H CK-MB (CK-2) 1.20 Troponin I < 0.012 11/04/18 11/05/18 11/05/18 21:20 03:36 03:36 Creatine Kinase 157 H CK-MB (CK-2) 1.71 1.40 Troponin I < 0.012 < 0.012 03/03/19 03/03/19 09:24 09:24 Creatine Kinase 125 CK-MB (CK-2) 1.21 Troponin I < 0.012 Impressions: Chest X-Ray 11/04/18 15:57 IMPRESSION: NO ACUTE RADIOGRAPHIC FINDING IN THE CHEST. Head CT 11/04/18 15:57 IMPRESSION: No acute intracranial findings. EVIDENCE OF ACUTE STROKE: NO. Abdomen/Pelvis CT 11/04/18 17:51 IMPRESSION: NO ACUTE FINDINGS IN THE ABDOMEN OR PELVIS ON CT SCAN WITH IV CONTRAST. Qualifiers - * PATIENT BEING DISCHARGED WITH ANY OF THE FOLLOWING DIAGNOSIS: No Plan Discharge Plan: Discharged home in the care of family members. Patient family declined home health services. Hold diabetic medications. Continue to eat a consistent carb diet; monitor Accu-Cheks and take log of blood sugars to follow-up appointment with PCP. Drink plenty of fluids. Return to the emergency department as needed for concerning symptoms. Time Spent: Less than 30 Minutes
== END 2018-11-06 15:39 | disposition home or self-care (01) ==
LOC: ER 15:34 → INTOOBSV 19:52 → EH 19:52 → 5 21:49
PROVIDERS: ADMIT Internal Medicine; ATTEND Internal Medicine
DX: K29.71 Gastritis, unspecified, with bleeding (principal); D72.829 Elevated white blood cell count, unspecified; K59.00 Constipation, unspecified; E11.9 Type 2 diabetes mellitus without complications; E27.40 Unspecified adrenocortical insufficiency; I10 Essential (primary) hypertension; E03.9 Hypothyroidism, unspecified; R68.0 Hypothermia, not associated with low environmental temperature; R09.81 Nasal congestion; J02.9 Acute pharyngitis, unspecified; R09.82 Postnasal drip; H61.23 Impacted cerumen, bilateral; R55 Syncope and collapse; J34.89 Other specified disorders of nose and nasal sinuses; Z79.899 Other long term (current) drug therapy; Z79.84 Long term (current) use of oral hypoglycemic drugs
CPT/HCPCS: 93005; 99291; 51702; 96374; 96375; 36415 ×3; 87040; 84439; 82553 ×2; 82962 ×2; 82550 ×2; 83735; 84100; 84443; 85025; 85027 ×2; 80048 ×2; 80053; 81001; 84484 ×2; 80307; 84481; 83036; 82533; 83605; 71045; 70450; 74177; 93010; A9270 ×10; J1644 ×2; J1720; J2765; C9113 ×3; J2405; J3490; S0164